=== PATIENT | male | born 2000 | race Hispanic/Latino ===

== ENCOUNTER 2024-09-08 19:58 | Emergency (ER) | payer OTHER, BC ==
[~2024-09-08] VITALS: Ht 172.7 cm; Wt 70.5 kg
[2024-09-08] MEDS: LIDOCAINE HCL MPF 1% 5ML VIAL IM SCH (20:26)
[2024-09-08] MEDS: LIDOCAINE HCL 1% 20 ML VIAL ONE (20:27)
[2024-09-08] MEDS ORDERED: AMOX1TAB16 PO (20:57)
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
[2024-09-08 21:00] VITALS: BP 124/57; PULSE 72; RESP 20; TEMP 98.1; O2SAT 98
== END 2024-09-08 21:06 | disposition home or self-care (01) ==
LOC: EDH 19:58
DX: S01.81XA Laceration without foreign body of other part of head, initial encounter (principal); W22.8XXA Striking against or struck by other objects, initial encounter; Y93.89 Activity, other specified; Y92.89 Other specified places as the place of occurrence of the external cause; Y99.8 Other external cause status
CPT/HCPCS: 99283; 12013; 96372; J3490